=== PATIENT | female | born 1950 | race Caucasian/White ===

== ENCOUNTER → 2017-07-27 | Outpatient (CLI) | payer OTHER ==
[~2017-07-27] MED LIST: ATORVASTATIN CA10 MG PO; AZELASTINE137 MCG/0. BOTH NARES; GLUCOPHAGE1000 MG PO; GLUCOPHAGE500 MG PO; HYZAAR 50-121 TABLET PO; JANUVIA25 M1 PO; LIPITOR10 MG PO; PREDNISONE10 MG PO; PREVACID30 MG PO; PROAIR HFA8.5 GM IH; SINGULAIR10 MG PO; SYMBICORT60 INHALAT IH; TOPROL XL50 MG PO; VERAPAMIL HCL180 MG PO; ZITHROMAX500 MG PO; ZYRTEC10 M3 PO
[2017-07-27 09:35] LABS: HEMATOCRIT 38.9 % (36.0-46.0); HEMOGLOBIN 12.4 G/DL (11.9-15.5); MCH 26.7 PG (29.0-34.0); MCHC 31.9 G/DL (30.0-36.0); MCV 83.7 FL (83-99); PLATELET COUNT 344 K/uL (156-360); RBC DIS.WIDTH-CV 13.3 % (11.8-14.6); RED BLOOD COUNT 4.65 M/uL (3.80-5.20); WHITE BLOOD COUNT 10.7 K/uL (4.1-10.2)
[2017-07-27 09:43] LABS: PTT 28.4 SEC (25-37)
== END | disposition home or self-care (01) ==
LOC: OPR 08:44 → EDSTATUS 09:00 → OPR 09:00
PROVIDERS: Internal Medicine Pulmonary Disease
DX: C7A.090 Malignant carcinoid tumor of the bronchus and lung (principal); Z85.3 Personal history of malignant neoplasm of breast; I10 Essential (primary) hypertension; E11.9 Type 2 diabetes mellitus without complications; J45.909 Unspecified asthma, uncomplicated; E78.5 Hyperlipidemia, unspecified; G47.33 Obstructive sleep apnea (adult) (pediatric); Z79.84 Long term (current) use of oral hypoglycemic drugs
CPT/HCPCS: 71045; 77012; 85027; 85610; 85730; 88305; 88341 TC; 88342 TC; J3010

== ENCOUNTER 2017-10-04 21:06 | Inpatient (IN) | payer OTHER ==
[~2017-10-04] VITALS: Ht 152.4 cm; Wt 95.5 kg
[~2017-10-04 21:06] MED LIST changes: +FLONASE SENSIM5.9 ML BOTH NARES; +SYMBICORT60 INHALA1 IH
[2017-10-05 10:28] LABS: PTT 29.1 SEC (25-37)
[2017-10-06] VITALS (19 sets, daily range): BP systolic 100–160; BP diastolic 59–93
[2017-10-06 07:31] LABS: HEMATOCRIT 37.2 % (36.0-46.0); HEMOGLOBIN 11.6 G/DL (11.9-15.5); MCH 26.3 PG (29.0-34.0); MCHC 31.2 G/DL (30.0-36.0); MCV 84.4 FL (83-99); PLATELET COUNT 277 K/uL (156-360); RBC DIS.WIDTH-SD 39.8 % (39-53); RED BLOOD COUNT 4.41 M/uL (3.80-5.20); WHITE BLOOD COUNT 14.6 K/uL (4.1-10.2)
[2017-10-06 07:59] LABS: CHLORIDE 102 MEQ/L (99-109); CREATININE 0.6 MG/DL (0.6-1.3); GFR ESTIMATE (CALCULATED) > 59 mL/min/; GLUCOSE 216 mg/dL (70-99); POTASSIUM 4.4 MEQ/L (3.7-5.4); SODIUM 139 MEQ/L (136-147); UREA NITROGEN (BUN) 13 mg/dL (9-23)
[2017-10-07] VITALS (23 sets, daily range): BP systolic 84–152; BP diastolic 36–76
[2017-10-07 09:00] LABS: HEMATOCRIT 32.5 % (36.0-46.0); HEMOGLOBIN 10.3 G/DL (11.9-15.5); MCH 27.1 PG (29.0-34.0); MCHC 31.7 G/DL (30.0-36.0); MCV 85.5 FL (83-99); PLATELET COUNT 258 K/uL (156-360); RBC DIS.WIDTH-CV 13.2 % (11.8-14.6); RBC DIS.WIDTH-SD 41.3 % (39-53); WHITE BLOOD COUNT 13.2 K/uL (4.1-10.2)
[2017-10-07 09:31] LABS: CHLORIDE 99 MEQ/L (99-109); POTASSIUM 3.8 MEQ/L (3.7-5.4); SODIUM 136 MEQ/L (136-147)
[2017-10-07 09:36] LABS: CREATININE 0.6 MG/DL (0.6-1.3); GFR ESTIMATE (CALCULATED) > 59 mL/min/; GLUCOSE 208 mg/dL (70-99); UREA NITROGEN (BUN) 11 mg/dL (9-23)
[2017-10-08] VITALS (15 sets, daily range): BP systolic 109–151; BP diastolic 57–83
[2017-10-08 05:54] LABS: HEMATOCRIT 31.5 % (36.0-46.0); HEMOGLOBIN 9.7 G/DL (11.9-15.5); MCH 26.4 PG (29.0-34.0); MCHC 30.8 G/DL (30.0-36.0); MCV 85.6 FL (83-99); PLATELET COUNT 265 K/uL (156-360); RBC DIS.WIDTH-CV 13.2 % (11.8-14.6); RBC DIS.WIDTH-SD 41.1 % (39-53); RED BLOOD COUNT 3.68 M/uL (3.80-5.20); WHITE BLOOD COUNT 5.9 K/uL (4.1-10.2)
[2017-10-08 06:12] LABS: CHLORIDE 102 MEQ/L (99-109); CREATININE 0.4 MG/DL (0.6-1.3); GFR ESTIMATE (CALCULATED) > 59 mL/min/; GLUCOSE 164 mg/dL (70-99); POTASSIUM 3.9 MEQ/L (3.7-5.4); SODIUM 138 MEQ/L (136-147); UREA NITROGEN (BUN) 10 mg/dL (9-23)
[2017-10-09 00:13] VITALS: BP 131/60
[2017-10-09 04:29] VITALS: BP 106/66
[2017-10-09 07:47] VITALS: BP 131/65
[2017-10-09 11:12] VITALS: BP 148/64
[2017-10-09 15:31] VITALS: BP 131/55
[2017-10-09 19:59] VITALS: BP 148/65
[2017-10-10] VITALS (7 sets, daily range): BP systolic 129–172; BP diastolic 60–75
[2017-10-10 05:48] LABS: HEMATOCRIT 27.6 % (36.0-46.0); HEMOGLOBIN 8.3 G/DL (11.9-15.5); MCHC 30.1 G/DL (30.0-36.0); MCV 86.5 FL (83-99); NRBC (%) 0.4 /100 WBC (0-0); PLATELET COUNT 287 K/uL (156-360); RBC DIS.WIDTH-CV 13.2 % (11.8-14.6); RBC DIS.WIDTH-SD 41.5 % (39-53); RED BLOOD COUNT 3.19 M/uL (3.80-5.20); WHITE BLOOD COUNT 7.5 K/uL (4.1-10.2)
[2017-10-10 06:16] LABS: CHLORIDE 102 MEQ/L (99-109); CREATININE 0.5 MG/DL (0.6-1.3); GFR ESTIMATE (CALCULATED) > 59 mL/min/; GLUCOSE 144 mg/dL (70-99); SODIUM 141 MEQ/L (136-147); UREA NITROGEN (BUN) 8 mg/dL (9-23)
[2017-10-10 06:18] LABS: POTASSIUM 4.7 MEQ/L (3.7-5.4)
[2017-10-11 04:12] VITALS: BP 145/73
[2017-10-11 07:03] VITALS: BP 171/76
[2017-10-11 12:21] VITALS: BP 172/79
[2017-10-11] MEDS ORDERED: NORCO 5/3251 TABLET PO (12:40)
[2017-10-11] MEDS ORDERED: DIGOXIN250 MCG PO (12:47)
[2017-10-11] MEDS ORDERED: CHROMAGEN,1 CAPSULE PO (12:47)
[2017-10-11] MEDS ORDERED: DOCUSATE SODIU100 MG PO (12:47)
[2017-10-11] MEDS ORDERED: THERAGRAN1 TABLET PO (12:47)
== END 2017-10-11 15:34 | disposition home health service (06) | DRG 164 ==
LOC: ENRESERV 21:06 → CANRESERV 21:06 → ENRESERV 10-05 08:03 → 2SOUTH 10-05 08:47 → 4WEST 10-06 01:18 → ENRESERV 10-08 08:50 → CANRESERV 10-08 08:50 → ENRESERV 10-08 10:42 → CANRESERV 10-08 10:42 → ENRESERV 10-08 19:43 → 4EAST 10-08 20:53
PROVIDERS: Thoracic Surgery (Cardiothoracic Vascular Surgery)
PROC: 0BTF0ZZ Resection of Right Lower Lung Lobe, Open Approach (ICD-10-PCS; 2017-10-05)
PROC: 5A09357 Assistance with Respiratory Ventilation, Less than 24 Consecutive Hours, Continuous Positive Airway Pressure (ICD-10-PCS; principal; 2017-10-06)
DX: C7A.090 Malignant carcinoid tumor of the bronchus and lung (principal); J45.909 Unspecified asthma, uncomplicated; I10 Essential (primary) hypertension; G47.33 Obstructive sleep apnea (adult) (pediatric); E78.5 Hyperlipidemia, unspecified; E11.9 Type 2 diabetes mellitus without complications; Z85.3 Personal history of malignant neoplasm of breast; R09.02 Hypoxemia; J98.11 Atelectasis; E66.01 Morbid (severe) obesity due to excess calories; Z68.41 Body mass index [BMI] 40.0-44.9, adult; Z90.11 Acquired absence of right breast and nipple
CPT/HCPCS: 71045; 71046; 80048; 80048 91; 82948; 85027; 85610; 85730; 86850; 86900; 86901; 86920; 87641; 88309; 94640; 94669; 94760; 94799; 97530 GO; 97530 GP; J0131; J0330; J0690; J1100; J1160; J1170; J1644; J1815; J1885; J2250; J2405; J3010; J7050; J7120; S0020